=== PATIENT | male | born 1985 | race Caucasian/White ===

== ENCOUNTER 2017-01-08 03:09 | Emergency (ER) | payer OTHER ==
[~2017-01-08] VITALS: Ht 170.2 cm; Wt 76.7 kg
[2017-01-08 03:12] VITALS: BP 144/81; TEMP 99
[2017-01-08] MEDS ORDERED: ZOFRAN ODT4 MG PO (04:05)
[2017-01-08 04:15] VITALS: PULSE 95
== END 2017-01-08 04:15 | disposition home or self-care (01) ==
LOC: COL.ER 03:09
DX: S06.0X0A Concussion without loss of consciousness, initial encounter (principal); S00.81XA Abrasion of other part of head, initial encounter; W19.XXXA Unspecified fall, initial encounter